=== PATIENT | female | born 1975 | race Asian ===

== ENCOUNTER 2018-11-26 14:32 | Emergency (ER) | payer SELFPAY ==
[~2018-11-26] VITALS: Ht 162.6 cm; Wt 52.6 kg
[2018-11-26 14:45] VITALS: Ht 162.6 cm; Wt 52.6 kg
[2018-11-26 17:21] LABS: PLATELET COUNT 214 x10^3mcL (130-400); RED CELL DISTRIBUTION WIDTH 12.6 % (11.5-14.5)
[2018-11-26 17:23] LABS: BASOPHIL % 2.9 % (0-2)
[2018-11-26 19:35] VITALS: BP 128/75
== END 2018-11-26 19:35 | disposition home or self-care (01) ==
LOC: EDBD 14:32 → ED 14:32
PROVIDERS: Emergency Medicine
DX: N94.6 Dysmenorrhea, unspecified (principal); D25.9 Leiomyoma of uterus, unspecified
CPT/HCPCS: 36415